=== PATIENT | female | born 1970 | race Hispanic/Latino ===

== ENCOUNTER 2022-04-13 16:21 | Emergency (ER) | payer SELFPAY ==
[~2022-04-13] VITALS: Ht 160 cm; Wt 67.1 kg
[2022-04-13] MEDS ORDERED: KETOROLAC TROMETHAMINE 30 MG/ML VIAL IV STA (16:55)
[2022-04-13] MEDS ORDERED: SODIUM CHLORIDE 0.9% 1000ML 1,000 ML IV SCH (17:00)
[2022-04-13] MEDS ORDERED: KETOROLAC TROMETHAMINE 30 MG/ML VIAL ONE (17:16)
[2022-04-13] MEDS ORDERED: SODIUM CHLORIDE 0.9% 1000ML 1,000 ML ONE (17:17)
[2022-04-13] MEDS ORDERED: IOPAMIDOL 370 MG/ML 100 ML INFUS..BTL INJ ONE (17:23)
[2022-04-13] MEDS ORDERED: NAPROSYN500 MG PO (18:36)
== END 2022-04-13 18:54 | disposition home or self-care (01) ==
LOC: FSED 16:27
DX: R10.32 Left lower quadrant pain (principal); S39.011A Strain of muscle, fascia and tendon of abdomen, initial encounter; X50.0XXA Overexertion from strenuous movement or load, initial encounter; Y99.0 Civilian activity done for income or pay; K57.90 Diverticulosis of intestine, part unspecified, without perforation or abscess without bleeding
CPT/HCPCS: 74177; 80053; 81003; 85025; 99284; J1885; J7030; Q9967

== ENCOUNTER 2024-07-07 14:37 | Emergency (ER) | payer SELFPAY ==
[~2024-07-07] VITALS: Ht 157.5 cm; Wt 62.4 kg
[~2024-07-07 14:37] MED LIST: NAPROSYN500 MG PO
[2024-07-07 14:45] VITALS: PULSE 60; RESP 18; TEMP 98.1
[2024-07-07] MEDS: SODIUM CHLORIDE 0.9% 1000ML 1,000 ML IV ONE (15:55)
[2024-07-07] MEDS: ONDANSETRON HCL INJ 2MG/ML 2ML 2 MG/ML VIAL IV STA (15:55)
[2024-07-07] MEDS: MECLIZINE HCL 12.5 MG TAB PO ONE (15:55)
[2024-07-07] MEDS ORDERED: MECLIZINE HCL12.5 MG PO (16:52)
[2024-07-07 17:05] VITALS: BP 141/78; PULSE 48; RESP 16; TEMP 97.9; O2SAT 100
== END 2024-07-07 17:04 | disposition home or self-care (01) ==
LOC: FSED 14:45
DX: R42 Dizziness and giddiness (principal); R00.1 Bradycardia, unspecified; Z77.22 Contact with and (suspected) exposure to environmental tobacco smoke (acute) (chronic)
CPT/HCPCS: 70450; 80053; 80307; 81003; 84484; 85025; 93005; 99283; J2405; J7030; J8597